=== PATIENT | male | born 1965 | race Caucasian/White ===

== ENCOUNTER → 2016-12-26 | Outpatient (CLI) | payer BC | LOC: SLEEP 21:30 | DX: G47.33 Obstructive sleep apnea (adult) (pediatric) (principal) | CPT/HCPCS: 95811 ==

== ENCOUNTER 2020-11-01 10:35 | Emergency (ER) | payer OTHER ==
[~2020-11-01 10:35] MED LIST: SYNTHROID150 MCG PO
[2020-11-01 11:53] LABS: HEMOGLOBIN 15.2 gm/dl (14.0-17.5); RED BLOOD COUNT 4.49 M/UL (4.20-5.50); WHITE BLOOD COUNT 7.5 K/UL (4.5-11.0)
[2020-11-01 12:19] LABS: BUN/CREATININE RATIO 20 (0-10)
[2020-11-19] MEDS ORDERED: HYDROCODON-ACE1 EAC6 PO (12:00)
== END 2020-11-01 15:17 | disposition home or self-care (01) ==
LOC: ER1 10:35
PROVIDERS: Physician Assistant
DX: K42.9 Umbilical hernia without obstruction or gangrene (principal)
CPT/HCPCS: 80053; 81001; 83690; 85025; 96374; 96375; 96376; 99284; J2270; J2405; Q9967

== ENCOUNTER → 2020-11-19 | Day surgery (SDC) | payer OTHER ==
[~2020-11-19] MED LIST changes: +HYDROCODON-ACE1 EAC6 PO
== END | disposition home or self-care (01) ==
LOC: OR 08:43
PROVIDERS: Surgery
PROC: 0WUF4JZ Supplement Abdominal Wall with Synthetic Substitute, Percutaneous Endoscopic Approach (ICD-10-PCS; principal; 2020-11-19 08:45)
DX: K42.9 Umbilical hernia without obstruction or gangrene (principal); G47.30 Sleep apnea, unspecified; E03.9 Hypothyroidism, unspecified; E66.01 Morbid (severe) obesity due to excess calories; Z68.34 Body mass index [BMI] 34.0-34.9, adult; Z79.899 Other long term (current) drug therapy; Z87.891 Personal history of nicotine dependence; Z20.822 Contact with and (suspected) exposure to COVID-19
CPT/HCPCS: C1781; J0690; J1100; J2250; J2405; J2704; J3010; J7030; J7120

== ENCOUNTER → 2021-10-16 | Outpatient (CLI) | payer OTHER | LOC: KOH-I 11:48 | DX: R06.02 Shortness of breath (principal); R05.9 Cough, unspecified | CPT/HCPCS: 71046 ==